=== PATIENT | female | born 1960 | race Caucasian/White ===

== ENCOUNTER → 2017-10-30 | Outpatient (CLI) | payer OTHER ==
[~2017-10-30] MED LIST: ESTR-33 PO; RANI-324 PO
--- NOTE | 2017-10-30 14:43 | RADIOLOGY IMAGING REPORT ---
FACILITY: [facility] PATIENT NAME: CHANDRA DE LA PAZ : [id number] MR: [id number] V: [id number] EXAM DATE: ORDERING PHYSICIAN: SOFIA DE LA PAZ TECHNOLOGIST: Carlee Joyce PROCEDURE:BILATERAL DIGITAL SCREENING MAMMOGRAM WITH CAD ASSISTED INTERPRETATION & 3D TOMOSYNTHESIS COMPARISON:Prior mammograms 08/22/14, 08/25/12, 05/21/11. INDICATIONS:SCREENING FINDINGS: Small amount of fibroglandular tissue is seen throughout the breasts. The parenchymal pattern has remained stable allowing for difference in mammographic technique & patient positioning. There is no evidence of malignant appearing mass, malignant appearing calcifications or other secondary sign of malignancy in either breast. DIAGNOSTIC CATEGORY 1--NEGATIVE. RECOMMENDATIONS: ROUTINE MAMMOGRAM AND CLINICAL EVALUATION. IMPRESSION: BIRADS 1: Negative No significant abnormality is seen. Dictated by: Radha Lord M.D. on 10/30/2017 at 12:34 Transcribed by: CARIDAD on 10/30/2017 at 13:15 Approved by: Radha Lord M.D. on 10/30/2017 at 14:42 [facility]
== END ==
LOC: MAMO 03:23
PROVIDERS: ATTEND Family Medicine
DX: Z12.31 Encounter for screening mammogram for malignant neoplasm of breast (principal)
CPT/HCPCS: 77063; 77067

== ENCOUNTER → 2017-11-20 | Outpatient (REF) | payer OTHER ==
[~2017-11-20] MED LIST changes: -RANI-324 PO; +RANI-366 PO
[2017-11-20 15:37] LABS: INR 0.99
== END ==
LOC: ZZSENDIN 15:31
PROVIDERS: ATTEND Family Medicine
DX: Z01.810 Encounter for preprocedural cardiovascular examination (principal)
CPT/HCPCS: 85610; 85730